=== PATIENT | male | born 1935 | race Caucasian/White ===

== ENCOUNTER → 2017-10-25 | Outpatient (CLI) | payer MEDICARE ==
[2015-10-29 14:27] VITALS: BP 120/72
[~2017-10-25] MED LIST: ASPI-630 PO; ATOR20TA PO; DEXL60CA2 PO; HCTZ; LISI1TAB5 PO
== END | disposition home or self-care (01) ==
LOC: LAB 12:30
PROVIDERS: ATTEND Urology
DX: R31.0 Gross hematuria (principal); I10 Essential (primary) hypertension; E78.5 Hyperlipidemia, unspecified
CPT/HCPCS: 87086

== ENCOUNTER → 2018-08-22 | Outpatient (CLI) | payer MEDICARE ==
[2015-10-29 14:27] VITALS: BP 120/72
== END | disposition home or self-care (01) ==
LOC: LAB 12:14
PROVIDERS: ATTEND Urology
DX: Z01.812 Encounter for preprocedural laboratory examination (principal); C67.3 Malignant neoplasm of anterior wall of bladder
CPT/HCPCS: 36415; 84132

== ENCOUNTER → 2019-11-28 | Outpatient (CLI) | payer MEDICARE ==
[2015-10-29 14:27] VITALS: BP 120/72
[~2019-11-28] MED LIST changes: +LISI1TAB19 PO; -LISI1TAB5 PO
--- NOTE | 2019-11-28 10:18 | RAD ---
Indication: Compression fracture of L2. Back pain. Screening for osteoporosis. Patient is 84 years old.. Bone Density: -BMD: (g/cm2) - AP Spine Total (L1-L4).......... 1.069. - Total right Hip................. 0.766. T-Score: - AP Spine Total (L1-L4)......... -0.6. - Total right Hip................. -1.5. Z-Score: - AP Spine Total (L1-L4).......... 0.1. - Total right Hip................. 0.1. World Health Organization criteria for BMD interpretation classify patients as Normal (T-score at or above -1.0), Osteopenic (T-score between -1.0 and -2.5), or Osteoporotic (T-score at or below -2.5). Impression: 1. AP Spine Total L1-L4--- normal. 2. Total right Hip--- osteopenia. Electronically signed by: Pradeep Salas MD (11/28/2019 10:15 AM) [facility]
== END | disposition home or self-care (01) ==
LOC: DXRAD 09:34
PROVIDERS: ATTEND Family Medicine
DX: M85.88 Other specified disorders of bone density and structure, other site (principal); M48.56XA Collapsed vertebra, not elsewhere classified, lumbar region, initial encounter for fracture
CPT/HCPCS: 77080

== ENCOUNTER 2020-11-11 08:19 | Emergency (ER) | payer MEDICARE, OTHER ==
[~2020-11-11] VITALS: Ht 180.3 cm; Wt 100.0 kg
[~2020-11-11 08:19] MED LIST changes: -LISI1TAB19 PO; +LISI1TAB37 PO
[2020-11-11 08:23] VITALS: BP 133/74
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
[2020-11-11] MEDS ORDERED: SUMA100T4 PO (09:22)
== END 2020-11-11 09:29 | disposition home or self-care (01) ==
LOC: ER 08:19
DX: S61.411A Laceration without foreign body of right hand, initial encounter (principal); S00.83XA Contusion of other part of head, initial encounter; I10 Essential (primary) hypertension; V49.49XA Driver injured in collision with other motor vehicles in traffic accident, initial encounter; Y93.I9 Activity, other involving external motion; Y92.488 Other paved roadways as the place of occurrence of the external cause; Y99.8 Other external cause status
CPT/HCPCS: 12001; 70450; 72125; 99285-25

== ENCOUNTER → 2021-02-22 | Outpatient (CLI) | payer MEDICARE ==
[~2021-02-22] MED LIST changes: +IOHEXOL 240 MG/ML 50ML VIAL. ONE; +SUMA100T4 PO
[2021-02-22] MEDS: IOHEXOL 240 MG/ML 50ML VIAL. PO ONE (09:22)
[2021-02-22] MEDS: IOHEXOL 300 MG/ML 75 ML VIAL. IV ONE (09:22)
--- NOTE | 2021-02-22 10:04 | RAD ---
CT STUDY OF THE ABDOMEN AND PELVIS WITH CONTRAST Clinical indications: Abdominal pain. History of bladder cancer. TECHNIQUE: After IV infusion of 60 cc of Omnipaque 300, helical CT scanning of the abdomen and pelvis was performed. GI contrast was administered per mouth. {GI contrast was not administered. This may d ecrease the sensitivity to detect GI tract pathology.} PQRS COMPLIANCE STATEMENT One or more of the following individualized dose reduction techniques were utilized for this study: 1. Automated exposure control 2. Adjustment of the mA and/or kV according to patient size 3. Use of iterative reconstruction technique COMPARISON: No previous abdomen and pelvis CT available. FINDINGS: No hepatic mass is evident. Spleen is not enlarged. No pancreatic mass is seen. Gallbladder is normal. No extrahepatic biliary ductal dilatation is seen. No adrenal mass is evident. Incidental note is made of a small right renal cyst. No further follow-up is needed. No renal mass or perinephr ic fluid collection is seen on either side. No hydronephrosis or hydroureter or urinary tract stone i s evident. Urinary bladder wall is smooth. There is enlargement of the prostate gland which indents t he floor of the urinary bladder. The prostate gland is heterogeneous. Prostate gland measures 5.2 cm transversely. Small hypodense areas of the prostate gland are seen. No periprostatic inflammation is evident. The seminal vesicles are symmetric. No focal aneurysmal dilatation of the abdominal aorta is seen. No enlarged abdominal or pelvic lymphadenopathy is evident. Colonic diverticulosis is seen mos t severely involving the sigmoid colon without diverticulitis. No obstructive bowel pattern is eviden t. The terminal ileum is normal. Patient has a history of appendectomy. No free air or free fluid or mesenteric edema is seen. Chronic interstitial thickening of both lung bases is seen which could be s een on a previous chest CT dated March 29, 2016. There is a moderate compression fracture of L2 and mi ld compression fracture of T9. There is a grade 1 anterolisthesis of L5-S1 secondary to bilateral spo ndylolysis of L5. No lytic process is seen. IMPRESSION: Enlarged prostate gland which is heterogeneous. Hypodense areas are seen within the centr al aspect of the prostate gland. Correlation with PSA is recommended. Hypodense areas may be seen wit h TURP if there is a history of such or may be seen with prostatitis and/or prostatic abscess if ther e are clinical findings of such. Urinary bladder wall is smooth. Colonic diverticulosis without diverticulitis. Mild compression fracture of T9 and moderate compression fracture of L2 of indeterminate age. 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 Electronically signed by: Pradeep Salas MD (02/22/2021 10:02 AM) [id number]
== END ==
LOC: CT 07:42
PROVIDERS: ATTEND Family Medicine
DX: K57.30 Diverticulosis of large intestine without perforation or abscess without bleeding (principal); N40.0 Benign prostatic hyperplasia without lower urinary tract symptoms; Z85.51 Personal history of malignant neoplasm of bladder
CPT/HCPCS: 74177; Q9966; Q9967

== ENCOUNTER 2021-10-01 20:27 | Inpatient (IN) | payer MEDICARE ==
[~2021-10-01] VITALS: Ht 177.8 cm; Wt 101.5 kg
[~2021-10-01 20:27] MED LIST changes: -IOHEXOL 240 MG/ML 50ML VIAL. ONE
--- NOTE | 2021-10-01 21:06 | RAD ---
EXAM: CT Head without IV contrast CLINICAL HISTORY: Reason: LEFT SIDE WEAKNESS / Spl. Instructions: / History: COMPARISON: None. TECHNIQUE: Routine CT of the head without contrast. PQRS compliance statement - One or more of the following individualized dose reduction techniques wer e utilized for this study: 1. Automated exposure control 2. Adjustment of the mA and/or kV according to patient size 3. Use of iterative reconstruction technique FINDINGS: There is no evidence of hemorrhage, mass or extra-axial fluid collection. Schneider-white differentiation is maintained with no evidence of edema. Subcortical, periventricular as w ell as deep white matter foci of hypoattenuation likely changes of chronic small vessel disease. There is no mass effect or shift of the intracranial structures. The ventricles, basilar cisterns and cortical sulci are normal in size and configuration for the kaila ents stated age. The cerebellum and brainstem are unremarkable. The calvarium demonstrates no evidence of fracture or focal lesion. There is normal aeration of the visualized paranasal sinuses and mastoid air cells. The visualized portions of the orbits are normal. Mild high density of the intracranial carotid and vertebral arteries as well as the dural venous sinu ses, likely from dehydration/hemoconcentration. IMPRESSION: No evidence for acute intracranial process. Electronically signed by: Ortiz Blue MD (10/01/2021 9:03 PM) SHANELLE
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
[2021-10-01 21:37] LABS: BASO % 0 % (0-3); EOS # 0.6 x10^3/uL (0.0-0.7); EOS % 10 % (0-3); LYMPH # 1.3 x10^3/uL (1.0-4.8); LYMPH % 21 % (24-48); MEAN CORPUSCULAR HEMOGLOBIN 31 pg (25-35); MEAN CORPUSCULAR HGB CONC 33 g/dL (31-37); MEAN CORPUSCULAR VOLUME 94 fL (79-100); MONO # 0.8 x10^3/uL (0.0-1.1); MONO % 12 % (0-9); NEUT # 3.6 x10^3uL (1.8-7.7); NEUT % 57 % (31-73); PLATELET COUNT 189 x10^3/uL (140-400); RED BLOOD COUNT 4.79 x10^6/uL (4.30-5.70); RED CELL DISTRIBUTION WIDTH 15.5 % (11.5-14.5); WHITE BLOOD COUNT 6.4 x10^3/uL (4.0-11.0)
--- NOTE | 2021-10-01 21:37 | RAD ---
EXAM: AP View of the chest DATE: 10/01/2021 8:45 PM INDICATION: Reason: LEFT SIDE WEAKNESS / Spl. Instructions: / History: COMPARISON: No Prior FINDINGS: Cardiac mediastinal silhouette is stable. Patchy opacities right upper lung. No pleural effusion or pneumothorax. IMPRESSION: 1. Patchy opacities right upper lung, possibly pneumonia. Electronically signed by: Ortiz Blue MD (10/01/2021 9:35 PM) SHANELLE
[2021-10-01 21:45] LABS: CALCIUM 8.5 mg/dL (8.5-10.1); POTASSIUM 4.4 mmol/L (3.5-5.1)
[2021-10-01 21:50] LABS: ALBUMIN 3.5 g/dL (3.4-5.0); ALBUMIN/GLOBULIN RATIO 1.2 (1.0-1.7); TOTAL BILIRUBIN 0.3 mg/dL (0.2-1.0); TOTAL PROTEIN 6.4 g/dL (6.4-8.2)
[2021-10-01] MEDS ORDERED: CONTRAST GIVEN. MC PRN (22:00)
--- NOTE | 2021-10-01 22:09 | EKG ---
[address] [address] Test Date: 2021-10-01 Test Time: 21:34:58 Pat Name: WON MENEZES Department: Room: Gender: M Registered Pharmacy Technician: : 1935 Requested By: KVNG BRIONES Order Number: [id number] Reading MD: Yonatan Parks MD Measurements Intervals [place] Rate: 56 P: 0 UT: 194 QRS: -37 QRSD: 102 T: -2 QT: 456 QTc: 443 Interpretive Statements SINUS RHYTHM ABNORMAL LEFT AXIS DEVIATION LEFT ANTERIOR FASCICULAR BLOCK ABNORMAL ECG NON-SPECIFIC ST/T CHANGES Electronically Signed On 10-03-2021 18:21:41 CLINICAL TECH by Yonatan Parks MD
[2021-10-01] MEDS ORDERED: IOHEXOL 350 MG/ML 100 ML VIAL. IV ONE (22:30)
[2021-10-01 23:00] LABS: BILIRUBIN,URINE NEG (NEG); CLARITY,URINE CLEAR; COLOR,URINE YELLOW; GLUCOSE,URINE NEG (NEG); NITRITE,URINE NEG (NEG); UROBILINOGEN,URINE 0.2 mg/dL (0.2 mg/dL)
[2021-10-01 23:01] LABS: BACTERIA,URINE MOD /HPF (0-FEW); SQUAMOUS EPITHELIAL CELL,UR FEW /LPF
[2021-10-01] MEDS ORDERED: diphenhydrAMINE 50 MG/ML VIAL ONE (23:01)
--- NOTE | 2021-10-01 23:16 | RAD ---
CTA head with and without and CTA neck with contrast History: Left-sided weakness, not a Stroke Protocol Technique: Axial images were obtained of the head without contrast and axial helical images were obta ined of the head and neck after the intravenous administration of 75 mL of Isovue-370 IV contrast. M ultiplanar reconstruction was performed on an independent work station including MIP imaging and 3D a ngiographic imaging. Comparison: none CTA head with and without contrast. Findings: Brain: The berry and white matter appears symmetrical. There is no mass effect, extra-axial fluid co llections or hydrocephalus. There is no gross bleed. Distal carotid arteries: normal caliber Vertebral basilar system normal Major cerebral arteries: normal Impression: no acute findings end impression CTA neck with contrast: Findings: Aortic arch and origin of great vessels: normal Common carotid arteries: Right: normal Left: normal Internal carotid arteries: Right: normal Left: normal Vertebral basilar system normal Impression: No significant stenosis. PQRS Compliance Statement - Stenosis calculations for CT, MR and conventional angiography are based u annie measurement of the distal ICA diameter in accordance with the NASCET methodology. Stenosis calcu lations for carotid ultrasound studies are derived from validated velocity criteria which are known t o correlate with the NASCET methodology. PQRS Compliance Statement: One or more of the following individualized dose reduction techniques were utilized for this examinat ion: 1. Automated exposure control 2. Adjustment of the mA and/or kV according to patient size 3. Use of iterative reconstruction technique Electronically signed by: Jeet Vela III, MD (10/01/2021 11:14 PM) [facility]
[2021-10-01] MEDS ORDERED: diphenhydrAMINE 50 MG/ML VIAL IVP ONE (23:30)
[2021-10-02] MEDS ORDERED: ASPIRIN 325 MG TABLET PO ONE (01:00)
[2021-10-02] MEDS ORDERED: ENOXAPARIN ** NOTE DOSE ** SYRINGE SQ ONE (01:00)
[2021-10-02 01:10] VITALS: BP 178/85
[2021-10-02] MEDS ORDERED: TRAV2.5D4 OU (01:41)
[2021-10-02] MEDS ORDERED: BRIM5DRO2 OU (01:41)
[2021-10-02] MEDS ORDERED: BRIN10DR OU (01:41)
[2021-10-02] MEDS ORDERED: HYDR12.58 PO (01:41)
[2021-10-02 04:52] VITALS: BP 167/93
[2021-10-02] MEDS ORDERED: SUMAtriptan SUCCINATE 50 MG TABLET PO PRN (05:45)
[2021-10-02] MEDS: ASPIRIN CHEWABLE 81 MG TABLET. PO SCH (10:14)
[2021-10-02] MEDS: ATORVASTATIN CALCIUM 20 MG TABLET PO SCH (10:14)
[2021-10-02] MEDS: LISINOPRIL 20 MG TABLET PO SCH (10:14)
[2021-10-02] MEDS: hydroCHLOROthiazide 12.5 MG CAPSULE PO SCH (10:15)
[2021-10-02 11:03] VITALS: BP 165/92
--- NOTE | 2021-10-02 11:36 | CONS ---
NEUROLOGY CONSULTATION REFERRING PHYSICIAN: Dr. Yanez. REASON FOR CONSULTATION: Rule out stroke. HISTORY OF PRESENT ILLNESS: The patient is an 85-year-old right-handed, pleasant patient, has been in good health until yesterday at 8:00 p.m. when he started having sudden onset of weakness of the left arm and leg. According to the patient, he never had any symptoms like this before or stroke or TIA. He did have a longstanding history of hypertension. He denies slurred speech, dysarthria or dysphagia, chest pain, shortness of breath or palpitation. On arrival to the Emergency Room, his blood pressure was 178/85. The patient denies any recent fall or head injuries. Initial nonenhanced head CT scan revealed no evidence of acute intracranial process, but showed chronic small vessel ischemic changes. CT angio of the head and neck reveals no additional abnormalities as stenosis. An x-ray revealed patchy opacity right upper lung and possible pneumonia. PAST MEDICAL HISTORY: Significant for hypertension, hyperlipidemia and glaucoma. PAST SURGICAL HISTORY: Positive for right knee surgery and possible cataract. SOCIAL HISTORY: The patient is . He denies smoking, alcohol drinking or illicit drug use. CURRENT HOME MEDICATIONS: Timolol eyedrops for glaucoma and Latanoprost eyedrops for glaucoma, Trusopt eyedrops also, hydrochlorothiazide 12.5 mg daily, lisinopril 25 mg daily, Lipitor 20 mg daily, aspirin 81 mg daily started in the Emergency Room. ALLERGIES: IODINATED CONTRAST MEDIA. REVIEW OF SYSTEMS: A 10-point review of system was performed as mentioned above in history of present illness. PHYSICAL EXAMINATION: GENERAL: Obese male in no acute distress. He weighs 103 kilos. VITAL SIGNS: Blood pressure 167/93, respiratory rate 20, pulse is 52, oxygen saturation is 96% on room air, temperature 97.9. HEENT: Normocephalic, atraumatic, otherwise unremarkable. NECK: Supple. Negative for carotid bruit, lymphadenopathy or thyromegaly. LUNGS: Clear to A and P. CARDIOVASCULAR: Regular rate and rhythm, normal S1, S2. There is no S3, S4 or murmur. ABDOMEN: Soft. Bowel sounds positive. EXTREMITIES: Negative for cyanosis, clubbing or pedal edema. NEUROLOGIC: Mental status: The patient is alert and oriented x 3. Speech is fluent. There is no language dysfunction. Memory, judgment and abstracting thinking are normal. The patient denies hallucination or delusion. Cranial nerves: Visual mccall are full. The pupils are reactive to light and accommodation. The extraocular movements are intact. There is no nystagmus. There is no facial motor or sensory deficit. Hearing is intact bilaterally. The palate is elevated symmetrically. Sternocleidomastoid muscles are powerful bilaterally. The patient shrugs his shoulders symmetrically, protrudes his tongue in the midline without fasciculation or atrophy. Motor examination: No focal muscle bulk wasting. The tone is normal. The strength is 4/5 in the left upper and lower extremities. The patient has difficulty standing. Sensory examination revealed normal pinprick, light touch, vibratory and position senses. Deep tendon reflexes were symmetric and active without pathologic responses. Gait: The patient has difficulty standing and using a walker due to weakness of the left lower extremity. DIAGNOSTIC DATA: Chest x-ray, a head CT scan, and CT angio of the neck and head as mentioned above in history of present illness. LABORATORY DATA: CBC revealed blood cells of 6.4 thousand, hemoglobin 15, hematocrit 45, platelet count 189,000. Chemistry revealed sodium 142, potassium 4.4, chloride 106, CO2 of 27, BUN 23, creatinine 1, glucose is 147, calcium 8.5. Troponin level is 9. Urinalysis is positive for urinary leukocyte esterase with white blood cells of 5-10 and moderate bacteria. Serology: CoV-2 rapid is negative; however, the patient has been vaccinated with Moderna, has 2 vaccinations of Moderna plus booster. IMPRESSION: 1. Sudden onset of left-sided weakness, more prominent on the left lower extremity with normal head CT scan and CT angio of the neck and head, rule out TIA versus stroke. 2. Multiple medical problems include glaucoma, hypertension and hyperlipidemia. 3. Elevated troponin level. 4. Urinary tract infections. 5. Abnormal chest x-ray suggestive of possible pneumonia. RECOMMENDATIONS: 1. Continue with current home medications and aspirin. 2. The patient's and son want the patient to be transferred to [facility] and to obtain a brain MRI, which is not available here at [facility]. 3. The patient needs physical therapy and slowly control his blood pressure and treat the underlying systemic infection, urinary tract infection and possible pneumonia. NICOLASA DR: Harjit TID: [id number]
--- NOTE | 2021-10-02 15:02 | HP ---
DATE OF SERVICE: 10/02/2021 ADMIT DATE: 10/01/2021 HISTORY OF PRESENT ILLNESS: The patient is an 85-year-old right-handed male patient who apparently developed sudden onset of weakness of the left upper and lower extremities around 8 p.m. last night. According to him, he had never had any symptoms like this before, never had any stroke or TIA. He did have a longstanding history of hypertension. He denied any slurring of speech, dysarthria, dysphasia or diplopia. Denied any shortness of breath or palpitation. When he arrived to the Emergency Room, his blood pressure was slightly high. He was extensively investigated and has had lab work and imaging studies. His lab work was mostly unremarkable. He had a CT scan of the head, which basically showed no evidence of acute intracranial process. He did have a CT angio of the head and neck, which again showed no evidence of the internal carotid arteries. The aortic arch and origin of the great vessels are normal, and carotid arteries are, left normal and right normal. Vertebrobasilar system also normal and the conclusion is that the patient has no significant stenosis. Apparently, his symptoms according to his family were improving when he was in the Emergency Room, and although the TPA was offered, it was declined and the patient was admitted for further evaluation and treatment. It transpired that he has AFib and was supposed to be on Eliquis, but according to his [id number], his forest practices field coordinator discontinued that. PAST MEDICAL HISTORY: Significant for hypertension, hyperlipidemia, migraine headache and glaucoma as well as gastroesophageal reflux disease. PAST SURGICAL HISTORY: Significant for right knee surgery and possible cataract extraction. FAMILY HISTORY: Noncontributory. SOCIAL HISTORY: He is . He does not smoke, drink alcohol or use recreational drugs. ALLERGIES: IODINATED CONTRAST MEDIA. MEDICATIONS: He is currently on the following medication, atorvastatin calcium 20 mg daily, lisinopril/hydrochlorothiazide 20/12.5 mg daily, aspirin 81 mg once a day, sumatriptan succinate 100 mg once a day, hydrochlorothiazide 12.5 mg once a day, brimonidine tartrate/timolol for Combigan two drops to both eyes twice a day, brinzolamide for Azopt 2 drops to both eyes twice a day and travoprost 2 drops to both eyes at bedtime. He is also on dexlansoprazole for Dexilant 60 mg once a day. REVIEW OF SYSTEMS: As per history of present illness. PHYSICAL EXAMINATION: GENERAL: On arrival to the Emergency Room, the patient looked well and was clearly in no apparent respiratory distress. No pallor, jaundice, cyanosis or thyromegaly. No jugular venous distention. No limb edema. VITAL SIGNS: His heart rate was 54, blood pressure was 178/85, temperature was 98.1, respiratory rate 22 and oxygen saturation was 96% on room air. HEAD, EYES, EARS, NOSE AND THROAT: Normocephalic, atraumatic. NECK: Supple. HEART: Showed normal first and second heart sounds. No gallop, rub or murmur. CHEST: Clear to auscultation, no crepitation or rhonchi. ABDOMEN: Distended, soft, nontender. NEUROLOGIC: He was awake, alert, responding appropriately. All his cranial nerves intact. He definitely has weakness in the left upper and left lower extremities. LABORATORY DATA: His lab work on admission showed a white cell count of 6400, hemoglobin 15, hematocrit 45, MCV 94 and platelet count of 189,000. His chemistry showed a serum sodium of 142, potassium 4.4, chloride 106, bicarbonate 27, anion gap of 9, BUN 23, creatinine 1, estimated GFR was 71 mL per minute. His glucose 147, calcium was 8.5. Total bilirubin, AST, ALT and alkaline phosphatase were normal. Total protein 6.4, albumin was 3.5. His prothrombin time, INR and APTT were normal. Urinalysis essentially unremarkable and his coronavirus rapid testing was negative. IMAGING: The chest x-ray showed the patient's cardiomediastinal silhouette is stable, patchy opacities in the right upper lung. No pleural effusion or pneumothorax. ASSESSMENT AND PLAN: In summary, this is an 85-year-old male patient who presented with new-onset left-sided hemiparesis. He apparently was within the window, but he and the family declined TPA. He has multiple other medical problems including hypertension, hyperlipidemia, migraine headache as well as glaucoma and gastroesophageal reflux disease. He might have aspirated, as he has some right upper lobe infiltrate. My plan is to continue with all his medication. I will start him also on antibiotic for possible aspiration pneumonia. We attempted to transfer him to [facility] and [facility] and both have no beds. I had a lengthy discussion with the neurologist at the [facility], and he stated that other than doing an MRI, there is nothing that can be done to reverse this, as it is too late now. I spoke with his [id number] and the plan was for him to be transferred to [facility] if possible; otherwise, he will be discharged home with home health on Monday. SERJIO DR: Charly TID: [id number]
[2021-10-02] MEDS: IPRATRPIUM/ALBUTEROL 0.5/2.5MG 3 ML NEBU. NEB SCH ×2 (16:00→20:00)
[2021-10-02 16:15] VITALS: BP 130/83
[2021-10-02 19:20] VITALS: BP 156/89
[2021-10-02] MEDS: LATANOPROST 0.005% OPHTH SOLUTION 2.5ML BOTTLE. OU SCH (19:31)
[2021-10-02] MEDS: ENOXAPARIN ** NOTE DOSE ** SYRINGE SQ SCH (19:31)
[2021-10-02] MEDS: PIPERACILLIN/TAZOBACTAM 3.375 GM in IV NORMAL SALINE 50ML 50 ML IV SCH (19:32)
--- NOTE | 2021-10-02 19:35 | RAD ---
EXAM: AP View of the chest DATE: 10/02/2021 7:05 PM INDICATION: worsening shortness of breath COMPARISON: 10/01/2021 FINDINGS: The heart is not enlarged. Aorta is tortuous. Patchy opacities right upper lung and left lung base likely atelectasis or developing consolidation. No pleural effusion or pneumothorax. IMPRESSION: Patchy opacities right upper lung and left lung base likely atelectasis or developing consolidation. Electronically signed by: Ortiz Blue MD (10/02/2021 7:32 PM) [facility]
[2021-10-02] MEDS: BRIMONIDINE 0.2% OPHTH SOLUTION 5ML BOTTLE. OU SCH (20:00)
[2021-10-02] MEDS: TIMOLOL 0.5% OPHTH SOLUTION 5ML BOTTLE. OU SCH (21:00)
[2021-10-02] MEDS: DORZOLAMIDE 2% OPHTH SOLUTION 10ML BOTTLE. OU SCH (21:30)
[2021-10-02] MEDS: LACTOBACILLUS RHAMNOSUS GG 1 CAPSULE. PO SCH (21:37)
[2021-10-02 23:05] VITALS: BP 144/73
--- NOTE | 2021-10-03 00:45 | PN ---
DATE: 10/02/2021 SUBJECTIVE: The patient was admitted yesterday with new onset of left sided upper and lower extremity weakness. He was within the window; however, TPA was apparently declined. CT scan of the head showed no abnormality and CT angio of the head and neck showed no evidence of arterial stenosis in both carotid and vertebrobasilar systems. The family wanted him to be transferred, so I did attempt to transfer him to [facility] as well as [facility]. I have had a lengthy discussion with the neurologist at [facility] and stated that the MRI is not going to make any difference to the outcome as there are no interventions that can be done, it is too late for that and I have spoken with his [id number] and the plan was to either transfer him to [facility] on Monday and/or discharge him home with home health. PHYSICAL EXAMINATION: GENERAL: When I saw him this afternoon, he looked well and was clearly in no apparent respiratory distress. No pallor, jaundice, cyanosis or thyromegaly. No jugular venous distention. No limb edema. VITAL SIGNS: His heart rate was 64, blood pressure was 165/92, temperature was 98.2, respiratory rate 20, and oxygen saturation was 96%. EXTREMITIES: Clinical exam showed he continued to have weakness in his left upper and lower extremity. The patient is unsteady on his feet and able to walk with a walker. LABORATORY DATA: His lab work this morning showed that his serum triglycerides are 113, total cholesterol 173, LDL cholesterol 111, VLDL was 22, HDL was 40 and the ratio was 4. ASSESSMENT: 1. In summary, this is a sick, an 85-year-old male patient with left-sided hemiplegia, although the CT scan of the head and a CT angio of the neck and head showed no evidence of stenosis. 2. The patient has multiple other medical problems including: A. Hypertension. B. Hyperlipidemia. C. Glaucoma. D. Gastroesophageal reflux disease. E. Migraine headache. The patient does have troponin of only 9 ng/mL. Chest x-ray showed possible aspiration pneumonia. I will add also IV antibiotics for that and I did order PT, OT and speech therapy. KEV/YARON/SIERRA DR: Charly TID: [id number]
[2021-10-03 05:41] VITALS: BP 146/80
[2021-10-03] MEDS: PIPERACILLIN/TAZOBACTAM 3.375 GM in IV NORMAL SALINE 50ML 50 ML IV SCH ×5 (06:20→23:30)
[2021-10-03 07:35] LABS: CREATININE 1.1 mg/dL (0.7-1.3); GFR 63.6; POTASSIUM 3.9 mmol/L (3.5-5.1)
[2021-10-03] MEDS: hydroCHLOROthiazide 12.5 MG CAPSULE PO SCH (10:10)
[2021-10-03] MEDS: LACTOBACILLUS RHAMNOSUS GG 1 CAPSULE. PO SCH ×2 (10:10→21:41)
[2021-10-03] MEDS: ATORVASTATIN CALCIUM 20 MG TABLET PO SCH (10:10)
[2021-10-03] MEDS: ASPIRIN CHEWABLE 81 MG TABLET. PO SCH (10:11)
[2021-10-03] MEDS: LISINOPRIL 20 MG TABLET PO SCH (10:11)
[2021-10-03] MEDS: ENOXAPARIN ** NOTE DOSE ** SYRINGE SQ SCH (10:12)
[2021-10-03] MEDS: IPRATRPIUM/ALBUTEROL 0.5/2.5MG 3 ML NEBU. NEB SCH ×4 (10:13→20:00)
[2021-10-03 11:32] VITALS: BP 153/82
--- NOTE | 2021-10-03 12:16 | PN ---
DATE: 10/03/2021 REFERRING PHYSICIAN: Dr. Yanez SUBJECTIVE: The patient denies any new medical or neurological complaints. He feels much better. He denies chest pain, shortness of breath or palpitation, dysarthria or dysphagia. He denies headaches or vertigo. OBJECTIVE: GENERAL: Obese male in no acute distress. VITAL SIGNS: Blood pressure 146/80, respiratory rate 14, pulse is 55 and regular, oxygen saturation is 96% on room air. HEENT: Normocephalic, atraumatic. Otherwise unremarkable. NECK: Supple, negative for carotid bruit, lymphadenopathy or thyromegaly. LUNGS: Clear to A and P. CARDIOVASCULAR: Regular rate and rhythm. Normal S1, S2. There is no S3, S4 or murmur. ABDOMEN: Soft. Bowel sounds positive. EXTREMITIES: Negative for cyanosis, clubbing or pedal edema. NEUROLOGIC: Mental status: The patient is alert and oriented x 3. Speech is fluent. There is no language dysfunction. Memory, judgment and abstracting thinking are normal. The patient denies hallucination or delusion. Cranial nerves are intact. Motor examination revealed weakness of the left lower extremity with patchy sensory deficits in distal lower extremities. The sensory examination elsewhere was normal to pinprick, light touch, vibratory and position senses. Deep tendon reflexes were symmetric and active with positive Babinski on the left side and equivocal on the right side. Gait: The patient has an unsteady stand, but he makes steps with assistance. IMPRESSION: 1. Status post stroke. Presented with left-sided weakness, more prominent on the left lower extremity. The patient is making progress with residual of lower extremity paresthesias and heaviness along with patchy sensory deficits in the distal lower extremity. Likely due to right hemispheric small infarct. 2. Multiple medical problems include pneumonia and possible urinary tract infections, hypertension and hyperlipidemia, glaucoma. RECOMMENDATIONS: Continue with current management and physical therapy. HOLLIS/ALISA DR: HOLLIS/jennifer TID: [id number]
--- NOTE | 2021-10-03 12:56 | RAD ---
EXAM: Carotid Doppler sonogram. HISTORY: Transient ischemic attack. TECHNIQUE: Hernandez scale and color Doppler sonographic evaluation of the neck with spectral waveform dominic lysis was performed and static images are submitted for review. FINDINGS: The peak systolic velocity within the right common carotid artery is 104 cm/sec. The peak s ystolic velocity within the right internal carotid artery is 78 cm/sec and the end diastolic velocity within the right internal carotid artery is 15 cm/sec. The right ICA/CCA ratio is 0.8. The peak systolic velocity within the left common carotid artery is 160 cm/sec. The peak systolic diane ocity within the left internal carotid artery is 156 cm/sec and the end diastolic velocity within the left internal carotid artery is 21 cm/sec. The left ICA/CCA ratio is 1.0. There is normal antegrade flow within both vertebral arteries. 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 PQRS Compliance Statement - Stenosis calculations for CT, MR and conventional angiography are based u annie measurement of the distal ICA diameter in accordance with the NASCET methodology. Stenosis calcu lations for carotid ultrasound studies are derived from validated velocity criteria which are known t o correlate with the NASCET methodology. Electronically signed by: Johanne Lu MD (10/03/2021 12:53 PM) [facility]
[2021-10-03] MEDS: ACETAMINOPHEN 325 MG TABLET PO PRN (14:24)
[2021-10-03 14:33] VITALS: BP 134/72
--- NOTE | 2021-10-03 18:09 | PN ---
DATE: 10/03/2021 SUBJECTIVE: The patient is resting flat, comfortably in bed, in no apparent distress. On questioning him, he denied any complaint. There seemed to be some improvement in his mobility and he was able to walk with a walker with assistance. PHYSICAL EXAMINATION: GENERAL: When I examined him, he looked well and was clearly in no apparent respiratory distress. No pallor, jaundice, cyanosis or thyromegaly. No jugular venous distention. No limb edema. VITAL SIGNS: Her heart rate was 50, blood pressure is 153/82, temperature was 97.8, respiratory rate 20, and oxygen saturation was 99% on room air. HEAD, EYES, EARS, NOSE, AND THROAT: Normocephalic, atraumatic. NECK: Supple. HEART: Showed normal first and second heart sounds. No gallop or murmur. CHEST: Clear to auscultation. No crepitation or rhonchi. ABDOMEN: Distended, soft, nontender. NEUROLOGIC: Continued to have mild left-sided weakness, more so on the left lower extremity than left upper extremity. His intake over the last 24 hours was 820, output was 1000. LABORATORY DATA: As of this morning, his serum sodium was 141, potassium 3.9, chloride 108, bicarbonate of ____, anion gap of 7, BUN 14, creatinine 1.1. Estimated GFR was 64 mL per minute. His glucose was 97, calcium was 8. Total bilirubin, AST, ALT, alkaline phosphatase were normal. Total protein 6, albumin 3. Serum triglycerides was 113. Total cholesterol 173, LDL cholesterol 111, VLDL was 22, HDL cholesterol was 40 and the ratio was 4. ASSESSMENT: An 85-year-old male patient with: 1. Left-sided hemiplegia, although CT scan of the head and CT angio of the neck and head showed no evidence of stenosis or infarct. 2. The patient has multiple other medical problems including: A. Hypertension. B. Hyperlipidemia. C. Glaucoma. D. Gastroesophageal reflux disease. E. Migraine headache. PLAN: To continue with physical and occupational therapy. He does have also what seemed to be pneumonia, so we will continue with IV antibiotic and I will probably ask Dr. Zacarias if he thinks that we should discontinue Lovenox. KEV/ALISA/BUCK DR: KEV/jennifer TID: [id number]
--- NOTE | 2021-10-03 18:57 | CONS ---
DATE OF CONSULTATION: 10/03/2021 REASON FOR CONSULTATION: Possible heart failure symptoms. CONSULTING PHYSICIAN: Dr. Yanez HISTORY OF PRESENT ILLNESS: The patient is an 85-year-old man with past medical history as noted below, who presented to the hospital with left-sided weakness and ultimately was diagnosed with a TIA. Initial CT scan of the head was unremarkable and he has been seen by Neurology service who has confirmed that he has had a stroke. The patient was asked to be seen by the Cardiology service due to concern for wheezing and difficulty breathing. The patient at baseline denies any chest pain or exertional dyspnea. He apparently is fairly active and able to go up and down his basement stairs and mow his yard without any significant limitations. Nursing staff has been concerned since admission because of some wheezing issues and he has been treated with DuoNebs. Chest x-ray was suggestive of possible infiltrates. PAST MEDICAL HISTORY: 1. Hypertension. 2. Dyslipidemia. 3. Gastroesophageal reflux disease. 4. History of Escherichia coli bacteremia. 5. Presumably had atrial fibrillation during some time at [facility] about 2 years ago, but apparently, he also was followed up by Dr. Cari Jain at [facility] and had a negative workup and ultimately his Eliquis was discontinued. PAST SURGICAL HISTORY: Notable for right knee surgery and cataract extraction. FAMILY HISTORY: Noncontributory. SOCIAL HISTORY: He is . No alcohol, tobacco or illicit drug use. ALLERGIES: IODINE CONTRAST MEDIA. CURRENT CARDIOVASCULAR MEDICATIONS: 1. Lovenox 100 mg q. 12 hours subQ. 2. Lisinopril 20 mg daily. 3. Atorvastatin 20 mg daily. 4. Aspirin 81 mg daily. PHYSICAL EXAMINATION: VITAL SIGNS: Afebrile, 56, 20, 134/72, 95% on room air. GENERAL: He is alert and oriented, in no acute distress. HEAD AND NECK: Unremarkable. CARDIAC: Regular rate and rhythm without any obvious murmurs, rubs or gallops. LUNGS: With notable for bilateral wheezing. ABDOMEN: Soft, nontender. EXTREMITIES: No clubbing, cyanosis, but with trace ankle edema. NEUROLOGIC: No obvious focal neurologic deficits. DIAGNOSTIC STUDIES: Hemoglobin, platelets are within normal limits. Potassium 3.9, creatinine 1.1. INR 1.0. Carotid Doppler is unremarkable for any significant pathology. Chest x-ray demonstrates mild hazy infiltrates, but no other obvious consolidation or edema. Head and neck CTA is unremarkable for any acute obstructive disease. EKG demonstrates sinus rhythm with left anterior fascicular block without any ST-T wave changes. Telemetry did not reveal any significant arrhythmias. ASSESSMENT AND PLAN: 1. Transient ischemic attack/cerebrovascular accident, currently undergoing workup. 2. History of hypertension. 3. Dyslipidemia. 4. Remote history of atrial fibrillation in the setting of acute illness, although the patient does not have any persistent history based on prior workup according to him involving an event monitor as well. He is followed through [facility]. RECOMMENDATIONS: From a purely cardiovascular perspective, no indication for anticoagulation at this time given that he does not have any documented evidence of atrial fibrillation. We will plan for treatment with aspirin and Plavix for a TIA/stroke and outpatient event monitoring for consideration of changing his medications to anticoagulation as necessary. Thank you for this consultation. PARIS/LON DR: Unique TID: [id number]
[2021-10-03 20:06] VITALS: BP 134/75
[2021-10-03] MEDS: BRIMONIDINE 0.2% OPHTH SOLUTION 5ML BOTTLE. OU SCH (20:24)
[2021-10-03] MEDS: TIMOLOL 0.5% OPHTH SOLUTION 5ML BOTTLE. OU SCH (20:36)
[2021-10-03] MEDS: DORZOLAMIDE 2% OPHTH SOLUTION 10ML BOTTLE. OU SCH (21:30)
[2021-10-03] MEDS: LATANOPROST 0.005% OPHTH SOLUTION 2.5ML BOTTLE. OU SCH (21:42)
[2021-10-03 23:39] VITALS: BP 115/70
[2021-10-04 04:58] VITALS: BP 118/78
[2021-10-04] MEDS: PIPERACILLIN/TAZOBACTAM 3.375 GM in IV NORMAL SALINE 50ML 50 ML IV SCH ×2 (06:33→12:52)
[2021-10-04] MEDS ORDERED: CLOPIDOGREL BISULFATE 75 MG TABLET PO SCH (08:00)
--- NOTE | 2021-10-04 08:01 | PDOC ---
CARDIO Progress Notes Date & Time Date of Service DATE: 10/04/21 TIME: 07:53 Time of Evaluation 07:53 Subjective Notes left sided weakness improved Vitals Vitals Vital Signs Date Time Temp Pulse Resp B/P (MAP) Pulse Ox O2 Delivery O2 Flow Rate FiO2 10/04/21 04:58 98.0 58 20 118/78 (91) 95 Room Air Weight Weight [ ] Input and Output I.O. Intake and Output 10/04/21 07:00 Intake Total 1130 ml Output Total 700 ml Balance 430 ml Intake Oral 1080 ml IV Total 50 ml Output Urine Total 700 ml # Voids 1 # Bowel Movements 1 Laboratory Labs Laboratory Tests Test 10/03/21 06:35 Sodium Level 141 mmol/L (136-145) Potassium Level 3.9 mmol/L (3.5-5.1) Chloride Level 108 mmol/L (98-107) Carbon Dioxide Level 26 mmol/L (21-32) Anion Gap 7 (6-14) Blood Urea Nitrogen 14 mg/dL (8-26) Creatinine 1.1 mg/dL (0.7-1.3) Estimated GFR (Cockcroft-Gault) 63.6 BUN/Creatinine Ratio 13 (6-20) Glucose Level 97 mg/dL (70-99) Calcium Level 8.0 mg/dL (8.5-10.1) Total Bilirubin 1.0 mg/dL (0.2-1.0) Aspartate Amino Transf (AST/SGOT) 15 U/L (15-37) Alanine Aminotransferase (ALT/SGPT) 13 U/L (16-63) Alkaline Phosphatase 66 U/L (46-116) VA-Lfp-T-Type Natriuretic Peptide 369 pg/mL (0-449) Total Protein 6.0 g/dL (6.4-8.2) Albumin 3.0 g/dL (3.4-5.0) Albumin/Globulin Ratio 1.0 (1.0-1.7) Microbiology Micro Microbiology 10/01/21 Urine Culture - Final, Complete Physical Exams HEENT: Neck Supple W Full Motion Chest: Symmetric Lungs: Clear to Auscultation Heart: RRR Abdomen: Soft N/T Extremities: No Edema Neurology: alert, oriented, follow commands Assessment Assessment 1. Left-sided hemiplegia, TIA versus CVA; CT head, CTA of the neck and head without acute findings. 2. Hypertension; controlled 3. Hyperlipidemia; LDL 111 4. Remote h/o AFIB in setting of acute illness. No persistent history based on prior workup involving an event monitor according to patient. Follows through [facility] Recommendations Secondary prevention ASA/Plavix, statin therapy Rehab modalities Outpatient event monitor versus ILR to guide therapy Follow up with primary integrated specialist through [facility]. RENATA GRIMM APRN Oct 04, 2021 08:01
[2021-10-04] MEDS: LISINOPRIL 20 MG TABLET PO SCH (09:34)
[2021-10-04] MEDS: ACETAMINOPHEN 325 MG TABLET PO PRN (09:34)
[2021-10-04] MEDS: ATORVASTATIN CALCIUM 20 MG TABLET PO SCH (09:35)
[2021-10-04] MEDS: ASPIRIN CHEWABLE 81 MG TABLET. PO SCH (09:35)
[2021-10-04] MEDS: LACTOBACILLUS RHAMNOSUS GG 1 CAPSULE. PO SCH (09:35)
[2021-10-04] MEDS: hydroCHLOROthiazide 12.5 MG CAPSULE PO SCH (09:35)
[2021-10-04] MEDS: IPRATRPIUM/ALBUTEROL 0.5/2.5MG 3 ML NEBU. NEB SCH ×2 (09:35→12:53)
[2021-10-04 10:34] VITALS: BP 144/82
[2021-10-04 15:00] VITALS: BP 132/84
--- NOTE | 2021-10-04 21:50 | PN ---
DATE: 10/04/2021 SUBJECTIVE: The patient denies any new medical or neurological complaints. He feels much better in terms of weakness of the left upper and lower extremities. He has been walking in the [place] with using a walker, which more stronger of the left lower extremity. He denies chest pain, shortness of breath or palpitation, dysarthria or dysphagia. OBJECTIVE: GENERAL: Well-developed, well-nourished male, not in acute distress. VITAL SIGNS: Blood pressure 118/78, respiratory rate 20, pulse is 58 and regular, temperature 98 oxygen saturation is 95% on room air. HEENT: Normocephalic, atraumatic, otherwise unremarkable. NECK: Supple, negative for carotid bruit, lymphadenopathy or thyromegaly. LUNGS: Clear to A and P. CARDIOVASCULAR: Regular rate and rhythm, normal S1, S2. There is no S3, S4 or murmur. ABDOMEN: Soft. Bowel sounds positive. EXTREMITIES: Negative for cyanosis, clubbing or edema. NEUROLOGIC: Mental status: The patient is alert and oriented x 3. The speech is fluent. There is no language dysfunction. Memory, judgment and abstracting thinking are normal. The patient denies hallucination or delusion. Cranial nerves are intact. No focal motor or sensory deficit. The strength is 4/5 in the left lower extremity and 5/5 throughout. Sensory examination revealed normal pinprick and light touch senses throughout. Deep tendon reflexes were symmetric and active without pathologic responses. Gait: The patient uses a walker for ambulation without assistance. IMPRESSION: 1. Status post acute stroke, presented with left-sided paresis -- improved with mild residual weakness of the left lower extremity. 2. Multiple medical problems include pneumonia, possible urinary tract infections, hypertension, hyperlipidemia, and glaucoma. RECOMMENDATIONS: 1. Continue with current medical and psychiatric care. 2. Continue with current Cardiology recommendations. DILIA DR: Harjit TID: [id number]
== END 2021-10-04 15:45 | DRG 64 ==
LOC: ER 20:27 → 1 SOUTH 22:11
PROVIDERS: ADMIT Internal Medicine; ATTEND Internal Medicine
DX: I63.9 Cerebral infarction, unspecified (principal); J15.6 Pneumonia due to other Gram-negative bacteria; J15.9 Unspecified bacterial pneumonia; N39.0 Urinary tract infection, site not specified; Z20.822 Contact with and (suspected) exposure to COVID-19; E78.5 Hyperlipidemia, unspecified; G43.909 Migraine, unspecified, not intractable, without status migrainosus; I48.91 Unspecified atrial fibrillation; I10 Essential (primary) hypertension; Z96.659 Presence of unspecified artificial knee joint; I44.4 Left anterior fascicular block; E66.9 Obesity, unspecified; K21.9 Gastro-esophageal reflux disease without esophagitis; Z79.82 Long term (current) use of aspirin; Z79.899 Other long term (current) drug therapy; Z90.49 Acquired absence of other specified parts of digestive tract; Z91.041 Radiographic dye allergy status; Z68.32 Body mass index [BMI] 32.0-32.9, adult
CPT/HCPCS: 36415; 70450; 70496; 70498; 71045; 80053; 80061; 81001; 82947; 83880; 84484; 85025; 85610; 85730; 87086; 87426; 93005; 93880; 94640; J1200; J1650; J2543; Q9967; U0003; 92610; 97530; 99285-25

== ENCOUNTER → 2022-02-08 | Outpatient (CLI) | payer MEDICARE ==
[~2022-02-08] MED LIST changes: +BRIM5DRO2 OU; +BRIN10DR OU; +HYDR12.58 PO; +TRAV2.5D4 OU
--- NOTE | 2022-02-08 10:41 | RAD ---
PROCEDURE: US BREAST LTD LT, MG DIAGNOSTIC BILAT HISTORY: The patient is 86 years old and is seen for Reason: LT BREAST LUMP / Spl. Instructions: / H istory: . COMPARISON: None. TECHNIQUE: CC and MLO views of both breasts were obtained. Images were processed by the [employer] computer-aided detection system. Targeted ultrasound of the left breast. DENSITY: The breast tissue is predominantly fatty. FINDINGS: Right mammogram: Minimal clinical gynecomastia. Small lateral lymph node. No suspicious mass, archite ctural distortion or microcalcification. Left mammogram: Well-circumscribed mass within the left upper breast 12:00 position measures 0.9 x 1. 1 cm and approximately 8.8 cm from the nipple on MLO view. Benign-appearing left axillary lymph nodes . Mild gynecomastia. Left ultrasound: Well-circumscribed hypoechoic mass immediately adjacent to the cutaneous surface edison sures 0.8 x 0.5 x 0.7 cm at the 1:00 position 8 cm from nipple. IMPRESSION: 1. Small hypoechoic mass within the left breast, most likely sebaceous cyst. Recommend clinical foll ow-up and imaging follow-up if interval growth. 2. Mild gynecomastia, left greater than right. BI-RADS category 2 Benign Electronically signed by: Ghanshyam Louise DO (02/08/2022 10:39 AM) [id number]
== END ==
LOC: MAMMO 09:01
PROVIDERS: ATTEND Family Medicine
DX: N63.42 Unspecified lump in left breast, subareolar (principal)
CPT/HCPCS: 76642; 77066